=== PATIENT | female | born 1990 | race Caucasian/White ===

== ENCOUNTER 2017-07-14 20:03 | Emergency (ER) | payer BC ==
[2017-07-14 20:26] VITALS: BP 147/97
--- NOTE | 2017-07-14 21:54 | UC ---
Skin Complaint HPI - HPI Summary HPI Summary: 27 yo WFno pmhx c/o red raised erythematous rash around her neck and upper chestx 1 wee Not diffuse, not very pruritic but feels irritated. Denies new soaps, foods or meds or excessive diaphoresis. - History of Current Complaint Chief Complaint: UCSkin Time Seen by Provider: 07/14/17 21:39 Stated Complaint: RASH,HEADACHE,FEVER,NAUSEA Hx Obtained From: Patient Hx Last Menstrual Period: one year ago Onset/Duration: Sudden Onset Skin Exposure Onset/Duration: Days Ago Pain Intensity: 4 - Allergy/Home Medications Allergies/Adverse Reactions: Allergies Allergy/AdvReac Type Severity Reaction Status Date / Time No Known Allergies Allergy Verified 07/14/17 20:26 Home Medications: Home Medications Norethindrone-Ethinyl Estrad [Dasetta 1-35-28 Tablet] 1 tab PO DAILY 07/14/17 [ History Confirmed 07/14/17] Review of Systems Constitutional: Negative Skin: Rash Eyes: Negative ENT: Negative Respiratory: Negative Cardiovascular: Negative Gastrointestinal: Negative Genitourinary: Negative Motor: Negative Neurovascular: Negative Musculoskeletal: Negative Neurological: Negative Psychological: Negative Is Patient Immunocompromised?: No All Other Systems Reviewed And Are Negative: Yes PMH/Surg Hx/FS Hx/Imm Hx - Additional Past Medical History Additional PMH: none Previously Healthy: Yes - Surgical History Surgical History: Yes Surgery Procedure, Year, and Place: RT OOPHERECTOMY - Family History Known Family History: Positive: Hypertension Negative: Cardiac Disease, Diabetes - Social History Alcohol Use: Occasionally Substance Use Type: None Smoking Status (MU): Current Every Day Smoker Type: Cigarettes Amount Used/How Often: 1/2 PPD Physical Exam Triage Information Reviewed: Yes Appearance: No Pain Distress Vital Signs: Initial Vital Signs Temp 36.8 C 07/14/17 20:23 Pulse 80 07/14/17 20:23 Resp 18 07/14/17 20:23 BP 147/97 07/14/17 20:23 Pulse Ox 100 07/14/17 20:23 Eye Exam: Normal ENT Exam: Normal Dental Exam: Normal Neck exam: Normal Neck: Positive: 1 Respiratory Exam: Normal Cardiovascular Exam: Normal Abdominal Exam: Normal Musculoskeletal Exam: Normal Neurological Exam: Normal Psychological Exam: Normal Skin: Positive: rashes - raised, grouped erythematous non-pruritic rash around neck and upper chest only Course/Dx - Course Course Of Treatment: atopic dermatitis vs acute MRSA skin eruption - Diagnoses Provider Diagnoses: MRSA skin eruption Discharge - Discharge Plan Condition: Stable Disposition: HOME Prescriptions: Betamethasone Ne 0.1% CM(NF) [Valisone 0.1% CM(NF)] 1 applic .SEE ORDER BID PRN 10 Days #1 tube PRN Reason: Pruritis Mupirocin 2% CREAM* [Bactroban 2% CREAM*] 1 applic TOPICAL BID 7 Days #1 tube Patient Education Materials: MRSA (Methicillin-Resistant Staphylococcus Aureus ) (ED) Referrals: Alanis Kelly NP [Primary Care Provider] - Additional Instructions: Follow up with Dermatology if rash worsens after 7-10 days in spite of medication
== END 2017-07-14 22:08 | disposition home or self-care (01) ==
LOC: UCEAST 20:03
DX: R21 Rash and other nonspecific skin eruption (principal); A49.02 Methicillin resistant Staphylococcus aureus infection, unspecified site; R51 Headache; R50.9 Fever, unspecified; R11.0 Nausea; Z90.721 Acquired absence of ovaries, unilateral; F17.210 Nicotine dependence, cigarettes, uncomplicated
CPT/HCPCS: 99212; G0463

== ENCOUNTER 2017-08-28 17:03 | Emergency (ER) | payer BC ==
[2017-08-28 18:05] VITALS: BP 138/85
--- NOTE | 2017-08-28 18:17 | ED ---
Influenza-Like Illness - HPI Summary HPI Summary: 25-year-old female presents with muscle aches, sore throat, cough for the past day. She states her friend was recently diagnosed with strep. She still able to swallow but it is painful. She is able to eat and drink. She took some Tylenol this morning. She admits to occasional headache. She admits to generalized abdominal pain. She denies any vomiting or diarrhea but admits to nausea. She denies any dysuria. She denies any chest pain or SOB. She has no medical conditions. - History of Current Complaint Chief Complaint: UCRespiratory Time Seen by Provider: 08/28/17 18:06 - Allergy/Home Medications Allergies/Adverse Reactions: Allergies Allergy/AdvReac Type Severity Reaction Status Date / Time No Known Allergies Allergy Verified 07/14/17 20:26 PMH/Surg Hx/FS Hx/Imm Hx Endocrine/Hematology History: Denies: Hx Anticoagulant Therapy Respiratory History: Denies: Hx Asthma - Surgical History Surgery Procedure, Year, and Place: RT OOPHERECTOMY Infectious Disease History: No Infectious Disease History: Denies: Traveled Outside the [place] in Last 30 Days - Family History Known Family History: Positive: Hypertension Negative: Cardiac Disease, Diabetes - Social History Alcohol Use: Occasionally Substance Use Type: Reports: None Smoking Status (MU): Current Every Day Smoker Type: Cigarettes Amount Used/How Often: 1/2 PPD Review of Systems Positive: Fever, Fatigue Positive: Sore Throat, Nasal Discharge Negative: Chest Pain Positive: Cough. Negative: Shortness Of Breath Positive: Abdominal Pain, Nausea. Negative: Vomiting, Diarrhea All Other Systems Reviewed And Are Negative: Yes Physical Exam Triage Information Reviewed: Yes Vital Signs On Initial Exam: Initial Vitals Temp Pulse Resp BP Pulse Ox 98.5 F 88 18 138/85 99 08/28/17 18:03 08/28/17 18:03 08/28/17 18:03 08/28/17 18:03 08/28/17 18:03 Vital Signs Reviewed: Yes Appearance: Positive: Well-Appearing Skin: Positive: Warm, Dry Head/Face: Positive: Normal Head/Face Inspection Eyes: Positive: Normal, EOMI, SAVANAH, Conjunctiva Clear ENT: Positive: Pharyngeal erythema, TMs normal, Other - soft palate symmetric. Negative: Tonsillar swelling, Tonsillar exudate, Trismus, Muffled voice Neck: Positive: Supple, Nontender, No Lymphadenopathy Respiratory/Lung Sounds: Positive: Clear to Auscultation, Breath Sounds Present Cardiovascular: Positive: Normal, RRR Abdomen Description: Positive: Nontender, Soft Bowel Sounds: Positive: Present Musculoskeletal: Positive: Normal Neurological: Positive: Normal Psychiatric: Positive: Normal Diagnostics - Vital Signs Vital Signs Temp Pulse Resp BP Pulse Ox 08/28/17 18:03 98.5 F 88 18 138/85 99 - Laboratory Lab Statement: Any lab studies that have been ordered have been reviewed, and results considered in the medical decision making process. Flu Symptom Course/Dx - Course Course Of Treatment: 25-year-old female presents with muscle aches, sore throat , cough for the past day. She states her friend was recently diagnosed with strep. She still able to swallow but it is painful. She is able to eat and drink. She took some Tylenol this morning. She admits to occasional headache. She admits to generalized abdominal pain. She denies any vomiting or diarrhea but admits to nausea. She denies any dysuria. She denies any chest pain or SOB. She has no medical conditions. Exam pharynx erythematous. uvula midline soft palate symmetric. Lungs clear to auscultation. Abdomen soft nontender. flu and strep neg. will have follow up with primary about blood pressure as is elevated at this visit. patient understand and agrees with plan. - Diagnoses Differential Diagnosis/HQI/PQRI: Positive: Influenza, Pneumonia, Upper Respiratory Infection Provider Diagnoses: Upper respiratory infection, Elevated blood pressure reading Discharge - Sign-Out/Discharge Documenting (check all that apply): Discharge - Discharge Plan Condition: Good Disposition: HOME Patient Education Materials: Upper Respiratory Infection (ED) Referrals: Alanis Kelly NP [Primary Care Provider] - Additional Instructions: Take tyenlol or ibuprofen every 6 hours for aches and sore throat Can gargle salt water Can use cough drops or products such as cloraseptic spray Follow up with primary Return to ED if develop fever does not respond to Tylenol or ibuprofen, inability to swallow, or any new or worsening symptoms - Billing Disposition and Condition Condition: GOOD Disposition: HOME
== END 2017-08-28 18:55 | disposition home or self-care (01) ==
LOC: UCEAST 17:03
DX: J06.9 Acute upper respiratory infection, unspecified (principal); R03.0 Elevated blood-pressure reading, without diagnosis of hypertension; F17.210 Nicotine dependence, cigarettes, uncomplicated
CPT/HCPCS: 87502; 87651; 99211; G0463

== ENCOUNTER 2018-08-08 13:09 | Emergency (ER) | payer BC ==
[2018-08-08 14:26] VITALS: BP 135/89
--- NOTE | 2018-08-08 14:35 | UC ---
Throat Pain/Nasal Joce HPI - HPI Summary HPI Summary: Ill just for the past 2 days with sore throat and occasional cough. Pt smokes. - History of Current Complaint Chief Complaint: UCRespiratory Stated Complaint: THROAT SINUSES Time Seen by Provider: 08/08/18 14:34 Hx Obtained From: Patient Hx Last Menstrual Period: a few months ?: No Onset/Duration: Gradual Onset Severity: Mild Pain Intensity: 6 Cough: Nonproductive - Occasional cough Associated Signs & Symptoms: Positive: Wheezing - Wheezing at times Related History: Smoking - Epiglottits Risk Factors Epiglottis Risk Factors: Negative - Allergies/Home Medications Allergies/Adverse Reactions: Allergies Allergy/AdvReac Type Severity Reaction Status Date / Time No Known Allergies Allergy Verified 08/08/18 14:26 Home Medications: Home Medications Dm/PE/Acetaminophen/Doxylamine [Vicks Nyquil Severe Cold] 1 liq PO DAILY PRN 11/21 [History Confirmed 08/08/18] Sambucol 1 tab PO ONCE PRN 08/08/18 [History Confirmed 08/08/18] PMH/Surg Hx/FS Hx/Imm Hx Previously Healthy: Yes Other History Of: Negative For: Anticoagulant Therapy - Surgical History Surgical History: Yes Surgery Procedure, Year, and Place: RT OOPHERECTOMY - Family History Known Family History: Positive: Hypertension Negative: Cardiac Disease, Diabetes - Social History Lives: With Family Alcohol Use: Occasionally Substance Use Type: None Smoking Status (MU): Current Every Day Smoker Type: Cigarettes Amount Used/How Often: 1/2 PPD Household Exposure Type: Cigarettes Review of Systems All Other Systems Reviewed And Are Negative: Yes Constitutional: Positive: Negative Skin: Positive: Negative Eyes: Positive: Negative ENT: Positive: Sore Throat, Sinus Congestion Respiratory: Positive: Cough - Occasional non-productive cough, occasional wheezing according to other family members, Other Cardiovascular: Positive: Negative Gastrointestinal: Positive: Negative Genitourinary: Positive: Negative Motor: Positive: Negative Neurovascular: Positive: Negative Musculoskeletal: Positive: Negative Neurological: Positive: Negative Psychological: Positive: Negative Is Patient Immunocompromised?: No Physical Exam Triage Information Reviewed: Yes Appearance: Well-Appearing, No Pain Distress, Well-Nourished Vital Signs: Initial Vital Signs Temp 97.7 F 08/08/18 14:22 Pulse 93 08/08/18 14:22 Resp 18 08/08/18 14:22 BP 135/89 08/08/18 14:22 Pulse Ox 100 08/08/18 14:22 Vital Signs Reviewed: Yes Eye Exam: Normal ENT: Positive: Pharyngeal erythema - Minimal pharyngeal erythema, Uvula midline. Negative: Trismus Neck exam: Normal Respiratory: Positive: No respiratory distress, No accessory muscle use, Wheezing - Very mild expiratory wheeze with forced expiration. Cardiovascular Exam: Normal Abdominal Exam: Normal Bowel Sounds: Positive: Present Musculoskeletal Exam: Normal Neurological Exam: Normal Psychological Exam: Normal Skin Exam: Normal Throat Pain/Nasal Course/Dx - Course Course Of Treatment: Comfortable here, Lungs clear throughout after Duoneb treatment. - Differential Dx/Diagnosis Differential Diagnosis/HQI/PQRI: Pharyngitis, URI Provider Diagnosis: Pharyngitis, Bronchitis Discharge - Sign-Out/Discharge Documenting (check all that apply): Patient Departure All imaging exams completed and their final reports reviewed: No Studies - Discharge Plan Condition: Good Disposition: HOME Prescriptions: Albuterol HFA INHALER* [Ventolin HFA Inhaler*] 2 puff INH Q4H PRN 5 Days #1 mdi PRN Reason: Wheezing Patient Education Materials: Upper Respiratory Infection (DC), Wheezing (ED) Referrals: Alanis Kelly MANAGER STYLIST [Primary Care Provider] - Additional Instructions: Increase fluids, Use your albuterol inhaler 2 puffs every 4-6 hours as needed for wheezing, follow up with your primary care provider in 3-4 days if no improvement. - Billing Disposition and Condition Condition: GOOD Disposition: Home
[2018-08-08] MEDS ORDERED: Albuterol/Ipratropium NEB.SOL* Albuterol 2.5 MG/Ipratropium 0.5 MG 3 ML INH ONE (14:38)
== END 2018-08-08 15:45 | disposition home or self-care (01) ==
LOC: UCEAST 13:09
DX: J40 Bronchitis, not specified as acute or chronic (principal); J02.9 Acute pharyngitis, unspecified; F17.210 Nicotine dependence, cigarettes, uncomplicated
CPT/HCPCS: 87651; 99212; A9270-GY; G0463

== ENCOUNTER 2019-04-25 12:27 | Emergency (ER) | payer MEDICAID, OTHER ==
--- OUTSIDE RECORDS SUMMARY | 2019-04-25 12:37 | XMS REPORT ---
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 with 0-03 depressed mood Problems in 43191112 SNOMED-CT 2018-06 Active relationship 0-03 with spouse or partner Relevant diagnostic tests/laboratory data Narrative No Information Procedures Procedure Code CodeSystem Target Date of Status Service Device Device Device Name Site Procedure Delivery Code Name UID Location SNOMED-CT () 2019-03-[address], [id number] SNOMED-CT () 2019-03-[address], [id number] SNOMED-CT () 2019-03-[address], [id number] Encounters/Encounter Diagnoses Encounter Name Encounter Diagnosis Diagnosis Diagnosis Date of Service Code Code Name CodeSystem Diagnosis Delivery Location [facility] [id number] Adjustment SNOMED-CT 2019-04-12 Behavioral Individual 30 disorder Health min with Clinic , , depressed , mood Vital Signs No Information Social History Element Description Description Start End Code CodeSystem AdditionalInfo Date Date SexAssignedAtBirth Female 1989-06 F AdministrativeGender 06-26 Hospital Discharge Instructions Reason For Referral Medical Equipment FDA Assessments
[2019-04-25 13:15] VITALS: BP 132/86
--- NOTE | 2019-04-25 13:43 | UC ---
Hand/Wrist HPI - HPI Summary HPI Summary: Patient is a 28-year-old female presenting with girlfriend for complaint of right wrist pain 1 week. Patient states she fell off her chair a week ago but is unsure if she actually injured it. Pain has gradually worsened since. 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 Denies decreased range of motion. Notes some swelling in the fingers. Denies bruising. States wrist pain radiates up the arm at times. Denies numbness and tingling. Denies repetitive movements. Patient is left-handed. - History Of Current Complaint Chief Complaint: UCUpperExtremity Stated Complaint: WRIST PAIN Hx Obtained From: Patient Hx Last Menstrual Period: bc Onset/Duration: Gradual Onset, Lasting Days Severity Initially: Mild Severity Currently: Moderate Pain Intensity: 6 Pain Scale Used: 0-10 Numeric - Allergies/Home Medications Allergies/Adverse Reactions: Allergies Allergy/AdvReac Type Severity Reaction Status Date / Time No Known Allergies Allergy Verified 04/25/19 13:15 PMH/Surg Hx/FS Hx/Imm Hx Other History Of: Negative For: Anticoagulant Therapy - Surgical History Surgical History: Yes Surgery Procedure, Year, and Place: RT OOPHERECTOMY - Family History Known Family History: Positive: Hypertension, Non-Contributory Negative: Cardiac Disease, Diabetes - Social History Occupation: Employed Full-time Alcohol Use: Occasionally Substance Use Type: None Smoking Status (MU): Current Every Day Smoker Type: Cigarettes Amount Used/How Often: 1/2 PPD Household Exposure Type: Cigarettes Review of Systems All Other Systems Reviewed And Are Negative: No Constitutional: Positive: Negative Respiratory: Positive: Negative Cardiovascular: Positive: Negative Neurovascular: Positive: Negative Musculoskeletal: Positive: Arthralgia - R wrist, Decreased ROM, Edema - R wrist Neurological: Positive: Negative. Negative: Paresthesia, Numbness Physical Exam Triage Information Reviewed: Yes Appearance: Well-Appearing, No Pain Distress, Well-Nourished Vital Signs: Initial Vital Signs Temp 98 F 04/25/19 13:13 Pulse 89 04/25/19 13:13 Resp 16 04/25/19 13:13 BP 132/86 04/25/19 13:13 Pulse Ox 100 04/25/19 13:13 Vital Signs Reviewed: Yes Eyes: Positive: Conjunctiva Clear ENT: Positive: Hearing grossly normal Neck: Positive: Supple Respiratory: Positive: No respiratory distress Cardiovascular: Positive: Pulses Normal - strong radial pulses, Brisk Capillary Refill Musculoskeletal: Positive: Strength Intact, No Edema, ROM Limited @ - R wrist flexion Neurological Exam: Other - sensation grossly intact Neurological: Positive: Alert Psychological: Positive: Age Appropriate Behavior Skin Exam: Normal - no erythema or ecchymosis Diagnostics - Radiology R wrist Radiology Interpretation Completed By: Radiologist Summary of Radiographic Findings: IMPRESSION: NO FRACTURE OF THE WRIST IS NOTED. Hand/Wrist Course/Dx - Course Course Of Treatment: Discussed the negative x-rays with patient. Instructed to continue with symptomatic treatment including use of wrist splint. Instructed to follow up with referral if symptoms persist. Patient voiced understanding and agreed with the treatment plan. - Differential Dx/Diagnosis Provider Diagnosis: Acute pain of right wrist Discharge ED - Sign-Out/Discharge Documenting (check all that apply): Patient Departure All imaging exams completed and their final reports reviewed: Yes - Discharge Plan Condition: Stable Disposition: HOME Patient Education Materials: Wrist Sprain (ED) Referrals: Choco Santos MD [Medical Doctor] - If Needed Enzo Diop DO [Primary Care Provider] - If Needed Additional Instructions: As discussed, the xrays of the wrist did not show any fractures. Rest, ice, elevate, and use the wrist splint to help relieve pain. You may also use over the counter pain medications as directed for relief of pain. If pain does not resolve, follow up with your PCP or orthopedics as listed below. - Billing Disposition and Condition Condition: STABLE Disposition: Home - Attestation Statements Provider Attestation: Per institutional requirements, I have reviewed the chart, however, I was not consulted specifically or made aware of this patient by the midlevel provider. I did not personally evaluate, interact with , or disposition this patient.
== END 2019-04-25 14:39 | disposition home or self-care (01) ==
LOC: UCEAST 12:27
DX: M25.531 Pain in right wrist (principal); F17.210 Nicotine dependence, cigarettes, uncomplicated
CPT/HCPCS: 99212; G0463